=== PATIENT | male | born 1960 | race American Indian/Alaskan Native ===

== ENCOUNTER 2021-09-01 07:40 | Day surgery (SDC) | payer MEDICAID ==
[~2021-09-01] VITALS: Ht 167.6 cm; Wt 107.3 kg
[2021-09-01 07:50] VITALS: BP 126/73
[2021-09-01] MEDS ORDERED: LIDOcaine Viscous 15ml cup ONE (08:10)
[2021-09-01] MEDS ORDERED: MIDAZolam 1 MG/ML 5ML VIAL ONE (08:10)
[2021-09-01] MEDS ORDERED: fentaNYL/PF 50MCG/1 ML 2ML syringe ONE (08:10)
[2021-09-01] MEDS ORDERED: TROS20TA4 PO (08:26)
[2021-09-01] MEDS ORDERED: OMEP40CA21 PO (08:26)
[2021-09-01] MEDS ORDERED: FURO-150 PO (08:26)
[2021-09-01] MEDS ORDERED: GABA300C PO (08:26)
[2021-09-01] MEDS ORDERED: FLO0.4C PO (08:26)
[2021-09-01] MEDS ORDERED: POTA-82 PO (08:26)
[2021-09-01] MEDS ORDERED: vit D PO (08:26)
[2021-09-01] MEDS ORDERED: SPIR25TA5 PO (08:26)
[2021-09-01 11:44] VITALS: BP 124/83
[2021-09-01 11:54] VITALS: BP 111/70
[2021-09-01 12:04] VITALS: BP 136/60
[2021-09-01 12:14] VITALS: BP 130/81
== END 2021-09-01 12:20 | disposition home or self-care (01) ==
LOC: GI LAB 07:40
PROVIDERS: ATTEND Internal Medicine Gastroenterology
DX: R12 Heartburn (principal); I85.00 Esophageal varices without bleeding; K22.89 Other specified disease of esophagus; K76.6 Portal hypertension; K31.89 Other diseases of stomach and duodenum; K44.9 Diaphragmatic hernia without obstruction or gangrene; K22.10 Ulcer of esophagus without bleeding; Z87.891 Personal history of nicotine dependence; Z86.19 Personal history of other infectious and parasitic diseases; Z79.899 Other long term (current) drug therapy
CPT/HCPCS: 43239; 99152; J2250; J3010; J7030; Z7512; A4620

== ENCOUNTER 2022-03-09 09:46 | Day surgery (SDC) | payer MEDICAID ==
[~2022-03-09] VITALS: Ht 172.7 cm; Wt 147.7 kg
[~2022-03-09 09:46] MED LIST: FLO0.4C PO; FURO-150 PO; GABA300C PO; OMEP40CA21 PO; POTA-82 PO; SPIR25TA5 PO; TROS20TA4 PO; vit D PO
[2022-03-09] MEDS ORDERED: FENTANYL CITRATE/PF 50 MCG/1 ML VIAL ONE ×2 (09:47→10:47)
[2022-03-09] MEDS ORDERED: LIDOcaine Viscous 15ml cup ONE (09:48)
[2022-03-09] MEDS ORDERED: MIDAZolam 1 MG/ML 5ML VIAL ONE (09:48)
[2022-03-09 10:00] VITALS: BP 148/87
[2022-03-09] MEDS ORDERED: VIT B12 (10:12)
[2022-03-09 11:05] VITALS: BP 139/70
[2022-03-09 11:15] VITALS: BP 128/70
[2022-03-09 11:25] VITALS: BP 134/77
[2022-03-09 11:35] VITALS: BP 140/82
== END 2022-03-09 11:45 | disposition home or self-care (01) ==
LOC: GI LAB 09:46
PROVIDERS: ATTEND Internal Medicine Gastroenterology
DX: I85.00 Esophageal varices without bleeding (principal); K20.90 Esophagitis, unspecified without bleeding; K22.89 Other specified disease of esophagus; K44.9 Diaphragmatic hernia without obstruction or gangrene; K31.89 Other diseases of stomach and duodenum; K76.6 Portal hypertension; K29.80 Duodenitis without bleeding; I50.9 Heart failure, unspecified
CPT/HCPCS: 43239; J2250; J3010; J7030; Z7512; 99152; A4620

== ENCOUNTER 2022-11-21 11:03 | Day surgery (SDC) | payer MEDICAID ==
[~2022-11-21] VITALS: Ht 157.5 cm; Wt 136.0 kg
[~2022-11-21 11:03] MED LIST changes: +POTA-366 PO; -POTA-82 PO; +VIT B12
[2022-11-21 11:56] VITALS: BP 123/64; PULSE 76; RESP 24
[2022-11-21 13:11] VITALS: BP 114/55; PULSE 85; RESP 15; O2SAT 96
[2022-11-21] MEDS ORDERED: MIDAZolam 1 MG/ML 5ML VIAL ONE (13:12)
[2022-11-21] MEDS ORDERED: fentaNYL/PF 50MCG/1 ML 2ML syringe ONE (13:12)
[2022-11-21] MEDS ORDERED: LIDOcaine Viscous 15ml cup ONE ×2 (13:13)
[2022-11-21 13:21] VITALS: BP 112/47; PULSE 87; RESP 20; O2SAT 96
[2022-11-21 13:31] VITALS: BP 126/70; PULSE 88; RESP 23; O2SAT 94
[2022-11-21 13:41] VITALS: BP 125/56; PULSE 88; RESP 23; O2SAT 98
== END 2022-11-21 13:45 | disposition home or self-care (01) ==
LOC: GI LAB 11:03
PROVIDERS: ATTEND Internal Medicine Gastroenterology
DX: I85.00 Esophageal varices without bleeding (principal); K21.9 Gastro-esophageal reflux disease without esophagitis; K44.9 Diaphragmatic hernia without obstruction or gangrene; K76.6 Portal hypertension; K31.89 Other diseases of stomach and duodenum; Z87.891 Personal history of nicotine dependence; E66.9 Obesity, unspecified; Z68.43 Body mass index [BMI] 50.0-59.9, adult; F12.90 Cannabis use, unspecified, uncomplicated; Z86.19 Personal history of other infectious and parasitic diseases
CPT/HCPCS: 43235; 99152; J2250; J3010; J7030; Z7512; A4620